=== PATIENT | male | born 1965 | race Caucasian/White ===

== ENCOUNTER 2017-09-08 23:56 | Emergency (ER) | payer OTHER ==
[~2017-09-08] VITALS: Ht 182.9 cm; Wt 92.6 kg
[2017-09-09 00:12] LABS: BASOPHIL (%) 0.2 % (0-1); EOSINOPHIL (%) 0.7 % (0-5); EOSINOPHIL COUNT 0.1 K/uL (0-0.3); HEMATOCRIT 45.6 % (38.0-50.0); HEMOGLOBIN 16.1 G/DL (12.5-16.6); IMMATURE GRANULOCYTE (%) 0.7 % (0.0-0.7); MCH 30.9 PG (29.0-34.0); MCHC 35.3 G/DL (30.0-36.0); MCV 87.5 FL (86-99); MONOCYTE (%) 11.9 % (3-12); NEUTROPHIL (%) 63.5 % (45-76); NEUTROPHIL COUNT 5.5 K/uL (1.8-6.4); PLATELET COUNT 201 K/uL (156-360); RBC DIS.WIDTH-SD 38.5 % (39-53); RED BLOOD COUNT 5.21 M/uL (4.00-5.50); WHITE BLOOD COUNT 8.6 K/uL (4.1-10.2)
[2017-09-09 00:18] LABS: AMYLASE 41 IU/L (1-118); CHLORIDE 103 mEq/L (99-109); POTASSIUM 3.3 mEq/L (3.7-5.4); SODIUM 139 mEq/L (136-147)
[2017-09-09 00:20] LABS: GLUCOSE 103 mg/dL (70-99)
[2017-09-09 00:23] LABS: SERUM ETHYL ALCOHOL 31 mg/dL
[2017-09-09 00:24] LABS: CREATININE 0.9 mg/dL (0.6-1.3); UREA NITROGEN (BUN) 11 mg/dL (9-23)
[2017-09-09 00:27] LABS: LIPASE 25 U/L (1.0-51.0)
[2017-09-09 00:29] LABS: GFR ESTIMATE (CALCULATED) > 59 mL/min/ (58.99-99999)
== END 2017-09-09 05:13 | disposition short-term general hospital (02) ==
LOC: TRA 23:56
PROVIDERS: Emergency Medicine
DX: S82.832B Other fracture of upper and lower end of left fibula, initial encounter for open fracture type I or II (principal); S82.392B Other fracture of lower end of left tibia, initial encounter for open fracture type I or II; S82.892B Other fracture of left lower leg, initial encounter for open fracture type I or II; M25.521 Pain in right elbow; S50.311A Abrasion of right elbow, initial encounter; M54.9 Dorsalgia, unspecified; V47.5XXA Car driver injured in collision with fixed or stationary object in traffic accident, initial encounter; Y92.410 Unspecified street and highway as the place of occurrence of the external cause; F10.99 Alcohol use, unspecified with unspecified alcohol-induced disorder; Y90.1 Blood alcohol level of 20-39 mg/100 ml; Z23 Encounter for immunization
CPT/HCPCS: 70450; 71010; 72125; 72170; 73080; 73590; 73600; 80048; 81003; 82150; 83690; 85025; 86850; 86900; 86901; 90832; 99281; 99285; G0480; J0690; J1580; J2270; J2405; J3010; J7050